=== PATIENT | female | born 1945 | race American Indian/Alaskan Native ===

== ENCOUNTER 2022-05-16 13:20 | Emergency (ER) | payer MEDICARE ==
[2022-05-16] MEDS ORDERED: KETOROLAC 30 MG/1 ML INJ IV ONE (13:51)
--- NOTE | 2022-05-16 14:29 | XRay Report ---
PELVIS 1 VIEW(S) INDICATION / CLINICAL INFORMATION: pelvic pain status post fall. COMPARISON: None available. FINDINGS: BONES / JOINT(S): No acute fracture or subluxation. Mild bilateral hip osteoarthrosis. SOFT TISSUES: No significant abnormality. ADDITIONAL FINDINGS: None. IMPRESSION: 1. No acute findings. Signer Name: Lance Coronel MD Signed: 05/16/2022 2:25 PM Workstation Name: [email or web address]
--- NOTE | 2022-05-16 15:00 | Emergency Department Report ---
ED General Adult HPI - General Chief complaint: Fall Stated complaint: FALL/WEAKNESS Time Seen by Provider: 05/16/22 13:44 Source: patient, EMS Mode of arrival: Stretcher Limitations: Physical Limitation - History of Present Illness Initial comments: Patient is a 77-year-old female who fell down today she is complaining of pelvic pain she states that she also hit her head. The pain is moderate she states that she has fell multiple times in the last week. Severity scale (0 -10): 5 - Related Data Allergies Allergy/AdvReac Type Severity Reaction Status Date / Time potassium AdvReac Unknown Verified 05/16/22 13:28 ED Review of Systems ROS: Stated complaint: FALL/WEAKNESS Other details as noted in HPI Constitutional: denies: chills, fever Eyes: denies: eye pain, eye discharge, vision change ENT: denies: ear pain, throat pain Respiratory: denies: cough, shortness of breath, wheezing Cardiovascular: denies: chest pain, palpitations Endocrine: no symptoms reported Gastrointestinal: denies: abdominal pain, nausea, diarrhea Genitourinary: denies: urgency, dysuria, discharge Musculoskeletal: denies: back pain, joint swelling, arthralgia Skin: denies: rash, lesions Neurological: denies: headache, weakness, paresthesias Psychiatric: denies: anxiety, depression Hematological/Lymphatic: denies: easy bleeding, easy bruising ED Physical Exam - General Limitations: Physical Limitation General appearance: alert, in no apparent distress - Head Head exam: Present: atraumatic, normocephalic - Eye Eye exam: Present: normal appearance - ENT ENT exam: Present: mucous membranes moist - Neck Neck exam: Present: normal inspection - Respiratory Respiratory exam: Present: normal lung sounds bilaterally. Absent: respiratory distress - Cardiovascular Cardiovascular Exam: Present: regular rate, normal rhythm. Absent: systolic murmur, diastolic murmur, rubs, gallop - GI/Abdominal GI/Abdominal exam: Present: soft, normal bowel sounds - Extremities Exam Extremities exam: Present: normal inspection - Back Exam Back exam: Present: normal inspection - Neurological Exam Neurological exam: Present: alert, oriented X3 - Psychiatric Psychiatric exam: Present: normal affect, normal mood - Skin Skin exam: Present: warm, dry, intact, normal color. Absent: rash ED Course Vital Signs 05/16/22 13:26 Pulse Rate 77 Respiratory 18 Rate Blood Pressure 101/76 [Left] O2 Sat by Pulse 95 Oximetry - Consultations Consultation #1: 05/16/22 17:[address] Pleitez patient can be transferred out to [facility]. ED Medical Decision Making - Radiology Data Radiology results: report reviewed - Medical Decision Making CDX: Hip fracture DDx: Subdural hemorrhage, pelvic fracture I will get x-ray IV Toradol CT scan and will plan to discharge patient Patient will need to be transferred to [facility]. Spoke with Dr. Pleitez patient has been accepted and will go ER to ER transfer. Critical care attestation.: If time is entered above; I have spent that time in minutes in the direct care of this critically ill patient, excluding procedure time. ED Disposition Clinical Impression: Focal hemorrhagic contusion of cerebrum Accidental fall Qualifiers: Encounter type: initial encounter Qualified Code(s): W19.XXXA - Unspecified fall, initial encounter Disposition: 02 [facility]ORT TERM [facility] Is pt being admited?: No Does the pt Need Aspirin: No Condition: Stable
--- NOTE | 2022-05-16 16:19 | Cat Scan Report ---
CT HEAD WITHOUT CONTRAST INDICATION / CLINICAL INFORMATION: fall hit her head. TECHNIQUE: All CT scans at this location are performed using CT dose reduction for ALARA by means of automated e xposure control. COMPARISON: None available. FINDINGS: HEMORRHAGE: A 14 mm diameter area of heterogeneous increased attenuation is seen along the left side of the falx at its junction with the inner table of the frontal bone. This appears to be a partially calcified extra-axial mass. Possibility of a hemorrhagic contusion in this location cannot be entirel y excluded however. Further evaluation is advised. EXTRA-AXIAL SPACES: Cortical sulci and sylvian fissures are mildly enlarged reflecting a degree of pa renchymal volume loss which is within normal limits for the patient's age of 77 years.. Basilar ciste rns have an unremarkable appearance. VENTRICULAR SYSTEM: There is mild compression of the frontal horn of the left lateral ventricle. Else where the third and lateral ventricles are mildly enlarged reflecting presence of age related parench ymal volume loss. CEREBRAL PARENCHYMA: Decreased brain parenchymal attenuation is seen in the white matter the anterior pole of the left frontal lobe. There is a small dense lesion along the anterior inferior aspect of t he frontal pole of the left frontal lobe as described above. This appears to represent a partially ca lcified meningioma, however, possibility of hemorrhagic contusion cannot be entirely excluded. White matter changes representing vasogenic edema could be secondary to this adjacent small tumor or could conceivably be secondary to trauma. Other underlying lesion cannot be excluded. Follow-up to include MRI brain without and with intravenous contrast is advised. Elsewhere decreased white matter attenuat ion is observed in a periventricular and deep white matter distribution compatible with microvascular ischemia. MIDLINE SHIFT OR HERNIATION: There is mild mass effect associated with decreased attenuation in the w jeronimo matter of the left frontal lobe with effacement of cortical sulci along the anterior and lateral convexity of the frontal lobe and mild deformity of the frontal horn of the left lateral ventricle. There is no indication of midline shift. CEREBELLUM / BRAINSTEM: Brainstem has an unremarkable appearance. Age related cerebellar atrophy is n oted. MIDLINE STRUCTURES:Pituitary gland has an unremarkable appearance. No abnormalities are seen in the p ineal region. INTRACRANIAL VESSELS:Calcified atherosclerotic plaque is present along the course of the cavernous se gments of both internal carotid arteries. Similar findings are seen at the distal vertebral arteries. CRANIOCERVICAL JUNCTION:No significant abnormality. ORBITS: visualized portions of the orbits have an unremarkable appearance. SOFT TISSUES of HEAD: No significant abnormality. CALVARIUM: Evaluation of bone windows reveals no abnormalities. PARANASAL SINUSES / MASTOID AIR CELLS: Paranasal sinuses are free from inflammatory mucosal disease. Mastoid air cells are normally pneumatized. ADDITIONAL FINDINGS: None. IMPRESSION: 1. Vasogenic edema in the white matter of the anterior pole of the left frontal lobe associated with mild mass effect as described above. Further evaluation to include MRI brain without and with intrave nous contrast material is advised. 2. Heterogeneous region of increased attenuation along the left side of the falx near its insertion o n the inner table of frontal bone. This could represent a small partially calcified meningioma. Possi bility of hemorrhagic contusion, while considered less likely, cannot be excluded. Signer Name: Miky Del Castillo MD Signed: 05/16/2022 4:14 PM Workstation Name: [id number]
[2022-05-16 17:42] VITALS: BP 170/88
== END 2022-05-17 18:25 | disposition short-term general hospital (02) ==
LOC: ED 13:20
DX: S06.339A Contusion and laceration of cerebrum, unspecified, with loss of consciousness of unspecified duration, initial encounter (principal); Z88.8 Allergy status to other drugs, medicaments and biological substances; Z79.899 Other long term (current) drug therapy; W18.39XA Other fall on same level, initial encounter; Y93.89 Activity, other specified; Y92.89 Other specified places as the place of occurrence of the external cause; Y99.8 Other external cause status
CPT/HCPCS: 70450; 72170; 96374; 99285; J1885